=== PATIENT | female | born 1975 | race African-American/Black ===

== ENCOUNTER 2021-05-16 10:32 | Outpatient (REF) | payer MEDICAID, SELFPAY ==
--- NOTE | ~2021-05-16 | MM_ITS ---
EXAMINATION: MM SCREENING DIGITAL BREAST TOMOSYNTHESIS, BILATERAL CLINICAL INFORMATION: Screening. Asymptomatic. The lifetime risk of breast cancer based on the Tyrer-Cuzick Model is 8%. COMPARISON: Mammography: 09/30/2019, 04/14/2018, 12/25/2016 TECHNIQUE: Digital breast tomosynthesis is performed in both the craniocaudal and mediolateral oblique views along with computer-aided detection (CAD). Synthesized 2D images are generated from the tomosynthesis. FINDINGS: The breasts are almost entirely fatty (ACR BI-RADS breast composition Category a). There are no significant masses, abnormal calcifications, or other abnormalities. The axilla and skin contours are unremarkable. MM/MM tomosynthesis screening BI IMPRESSION: No mammographic evidence of malignancy. ASSESSMENT: BI-RADS 1: Negative RECOMMENDATION: Routine annual mammography screening. This patient's information was entered into a reminder system with a target due date for their next mammogram.
== END 2021-05-16 10:33 | disposition home or self-care (01) ==
LOC: HO.MAMMO 10:32
PROVIDERS: Visit Provider Internal Medicine
DX: Z12.31 Encounter for screening mammogram for malignant neoplasm of breast (principal)
CPT/HCPCS: 77063; 77067

== ENCOUNTER 2022-06-12 10:48 | Outpatient (REF) | payer MEDICAID, SELFPAY ==
--- NOTE | ~2022-06-12 | MM_ITS ---
EXAMINATION: MM SCREENING DIGITAL BREAST TOMOSYNTHESIS, BILATERAL CLINICAL INFORMATION: Screening. Asymptomatic. The lifetime risk of breast cancer based on the Tyrer-Cuzick Model is 6.6%. COMPARISON: Mammography: May 16, 2021 and studies dating back to December 17, 2016 TECHNIQUE: Digital breast tomosynthesis is performed in both the craniocaudal and mediolateral oblique views along with computer-aided detection (CAD). Synthesized 2D images are generated from the tomosynthesis. FINDINGS: The breasts are almost entirely fatty (ACR BI-RADS breast composition Category a). There are no significant masses, abnormal calcifications, or other abnormalities. MM/MM tomosynthesis screening BI IMPRESSION: There are no significant changes from prior study. ASSESSMENT: BI-RADS 1: Negative RECOMMENDATION: Routine annual mammography screening. This patient's information was entered into a reminder system with a target due date for their next mammogram.
== END 2022-06-12 10:49 | disposition home or self-care (01) ==
LOC: HO.MAMMO 10:48
PROVIDERS: Visit Provider Internal Medicine
DX: Z12.31 Encounter for screening mammogram for malignant neoplasm of breast (principal)
CPT/HCPCS: 77063; 77067

== ENCOUNTER 2023-06-17 12:35 | Outpatient (REF) | payer MEDICAID, SELFPAY ==
--- NOTE | ~2023-06-17 | MM_ITS ---
EXAMINATION: MM SCREENING DIGITAL BREAST TOMOSYNTHESIS, BILATERAL CLINICAL INFORMATION: Screening. Asymptomatic. The lifetime risk of breast cancer based on the Tyrer-Cuzick Model is 2%. COMPARISON: Mammography: This study is compared with prior exams dating back to 2017. TECHNIQUE: Digital breast tomosynthesis is performed in both the craniocaudal and mediolateral oblique views along with computer-aided detection (CAD). Synthesized 2D images are generated from the tomosynthesis. FINDINGS: The breasts are almost entirely fatty (ACR BI-RADS breast composition Category a). There are no significant masses, abnormal calcifications, or other abnormalities. MM/MM tomosynthesis screening BI IMPRESSION: No mammographic evidence of malignancy. ASSESSMENT: BI-RADS BI-RADS 1 - Negative RECOMMENDATION: Routine annual mammography screening. 1 year F/U This examination should not preclude the clinical evaluation of a suspicious palpable abnormality. This patient's information was entered into a reminder system with a target due date for their next mammogram.
== END 2023-06-17 12:36 | disposition home or self-care (01) ==
LOC: HO.MAMMO 12:35
PROVIDERS: Visit Provider Internal Medicine
DX: Z12.31 Encounter for screening mammogram for malignant neoplasm of breast (principal)
CPT/HCPCS: 77063; 77067

== ENCOUNTER → 2023-06-17 13:15 | Outpatient (BNV) | payer MEDICAID, SELFPAY | PROVIDERS: Visit Provider Radiology Diagnostic Radiology | DX: Z12.31 Encounter for screening mammogram for malignant neoplasm of breast (principal) | CPT/HCPCS: 77063; 77067 ==

== ENCOUNTER 2025-01-18 09:10 | Outpatient (REF) | payer MEDICAID, SELFPAY ==
--- OUTSIDE RECORDS SUMMARY | 2025-01-18 09:48 | XMS_ITS | Encounter Summary ---
Author Organization [employer] Address [address] [place] [address] Care Team Providers Care Correctional Therapy Director Name Role Phone Maday Espinal MD Primary Care Provider + Encounter Details Date Type Department Care Team (Latest Contact Info) Description 01/01/2025 Travel Social History Tobacco Use Types Packs/Day Years Used Date Smoking Tobacco: Never Smokeless Tobacco: Never Alcohol Use Standard Drinks/Week Comments Never 0 (1 standard drink = 0.6 oz pur e alcohol) Housing Stability Answer Date Recorded What is your housing situation today? I have bryce schmidt 07/31/[address] you li ve. Do you have problems with any of the following? None of the above 07/31/2024 Food Insecurity Answer Date Recorded Within the past 12 months, y ou worried that your food would run out before you got money to buy more: Sometimes True 2023 Within the past 12 months,th e food you bought just didn't last and you didn't have enough money to get more: Never True 07/31/2024 Transportation Answer Date Recorded In the past 12 months, has l ack of transportation kept you from medical appts, meetings, work or from getting things needed for daily living? No 05/14/2024 Utilities Answer Date Recorded In the past 12 months, has t he electric, gas, oil or water company threatened to shut off services in your home? No 09/10/2023 Depression Answer Date Recorded Patient Health Questionnaire-2 Score 0 08/13/2023 Internet Access Answer Date Recorded Internet Access Q1 Yes 07/31/2024 Internet Access Q2 I do not want or need it 04/2024 Comments Unknown Sex and Gender Information Value Date Recorded Sex Assigned at Female 09/24/2022 10:15 AM EDT Legal Sex Female 10:15 AM EDT Gender Identity Female 09/24/2022 10:15 AM EDT Sexual Orientation Straight 09/24/2022 10 :15 AM EDT documented as of this encounter Plan of Treatment Upcoming Encounters Date Type Department Care Team (Late st Contact Info) Description 01/27/2025 11:00 AM EST Office Visit [facility] OPTOMETRY [address] [place] [address] Risa Wasserman, OD [address] [place] [address] 02/05/2025 12:00 PM EDT Office Visit [facility] MEDICINE [address] [place] [address] Maday Espinal MD [address] [place] [address] documented as of this encounter Visit Diagnoses Not on filedocumented in this encounter Care Teams Correctional Therapy Director Relationship Specialty Start Date End Date Maday Espinal MD [address] [place] [address] PCP - General Family Medicine 07/11/17 Kenji Morgan Toilet AttendantGlass Blower Helper 12/30/23 documented as of this encounter
--- OUTSIDE RECORDS SUMMARY | 2025-01-18 09:48 | XMS_ITS | Encounter Summary ---
Author Organization [email or web address] Address [address] [facility] 7t [place] [address] Care Team Providers Care Executive Coach Name Role Phone Maday Espinal MD Primary Care Provider + Reason for Visit * Reason Onset Date Comments Appointment Request 09/08/2024 Encounter Details Date Type Department Care Team ([facility] Contact Info) Description 09/08/2024 Telephone [facility] MEDICINE [address] [place] [address] Maday Espinal MD [address] [place], [place] [phone] Appointment Request Social History Tobacco Use Types Packs/Day Years [...] AM EDT documented as of this encounter Miscellaneous Notes * Telephone Encounter - Jaime Richards - 09/08/2024 11:30 AM EDT Tc from patient calling to cancel appt for 09/15 adjusto writer operator did attempt to reschedule however there is no availability documented in this encounter Plan of Treatment Upcoming Encounters Date Type Department Care Team (Late st Contact Info) Description 01/27/2025 11:00 AM EST Office Visit [facility] OPTOMETRY [address] [place] [address] Lux, Risa, OD [address] [place] [address] 02/05/2025 12:00 PM EDT Office Visit [facility] MEDICINE [address] [place] [address] Maday Espinal MD [address] [place] [address] documented as of this encounter Visit Diagnoses Not on filedocumented in this encounter Care Teams Executive Coach Relationship Specialty Start Date End Date Maday Espinal MD [address] [place] [address] PCP - General Family Medicine 07/11/17 Kenji Morgan Labour Market EconomistStructural Steel Trades Worker 12/30/23 documented as of this encounter
--- OUTSIDE RECORDS SUMMARY | 2025-01-18 09:48 | XMS_ITS | Encounter Summary ---
Author Organization [employer] Address [address] [facility] [address] [place] [address] Care Team Providers Care Hinging Machine Operator Name Role Phone Maday Espinal MD Primary Care Provider + Reason for Visit * Reason Comments Follow-up Encounter Details Date Type Department Care Team ([facility] st Contact Info) Description 01/08/2025 9:45 AM EST Office Visit [facility] MEDICINE [address] [place] [address] Maday Espinal MD [address] [place], [place] [phone] Primary hypertension (Primary Dx); IFG (impaired fasting glucose); Vitamin D deficiency; Hypertriglyceridemia; Non-seasonal allergic rhinitis due to other allergic trigger Social History Tobacco Use Types Packs/Day Years Used Date Smoking Tobacco: Never Smokeless Tobacco: Never Tobacco Cessation:Counseling Given: Not Answered Alcohol Use Standard Drinks/Week Comments Never 0 [...] Date Recorded Patient Health Questionnaire-2 Score 0 01/08/2025 Internet Access Answer Date Recorded Internet Access [...] AM EDT documented as of this encounter Last Filed Vital Signs Vital Sign Reading Time Taken Comments Blood Pressure 130/80 01/08/2025 10:05 AM EST Pulse 80 01/08/2025 9:32 AM EST Temperature 35.6 ??C (96 ??F) 01/08/2025 9:32 AM EST Respiratory Rate - - Oxygen Saturation 100% 01/08/2025 9:32 AM EST Inhaled Oxygen Concentration - - Weight 90.8 kg (200 lb 4 oz) 01/08/2025 9:32 AM EST Height 154.6 cm (5' 0.88 ) 01/08/2025 9:32 AM ES T Body Mass Index 37.99 01/08/2025 9:32 AM EST documented in this encounter Progress Notes * Maday Espinal MD - 01/08/2025 9:45 AM EST SUBJECTIVE: Valentina Case is a 49 y.o. year old female who presents for Adlt sick visit visit . Denies recent illness, injury, or hospitalization. Patient here for follow-up., She is on the tail of a URI, has residual nasal congestion, no fever. She tells me that she has been taking losartan daily, [facility] but tells me blood pressure has been controlled. She does not have exertional chest pain and does have occasional headache. She is seeing a counselor and a prescriber Patric miller every 3 months, is doing well, takes BuSpar and duloxetine. She missed her appointment for mammogram. Acute Concerns: Social History Social History Narrative Not on file Patient Active Problem List Diagnosis Varicose veins of lower extremity Primary insomnia IFG (impaired fasting glucose) Hypertensive disorder Hypertriglyceridemia Hyperlipidemia Gastroesophageal reflux disease without esophagitis Folliculitis Bilateral chronic knee pain Amenorrhea Acute frontal sinusitis Foot pain Vitamin D deficiency Stress incontinence of urine Housing instability due to imminent risk of homelessness Allergic rhinitis due to allergen Class 3 severe obesity due to excess calories with serious comorbidity and body mass index (BMI) of40.0 to 44.9 in adult ([facility]) Chronic gastroesophageal reflux disease Recurrent major depressive disorder, in partial remission ([facility]) Callus No family history on file. Review of Systems Constitutional: Negative for chills, fatigue and fever. HENT: Positive for congestion. Negative for ear pain, nosebleeds, rhinorrhea, sinus pressure, sore throat and trouble swallowing. Eyes: Negative for pain and discharge. Respiratory: Negative for cough, chest tightness and shortness of breath. Cardiovascular: Negative for chest pain, palpitations and leg swelling. Gastrointestinal: Negative for abdominal pain, blood in stool, constipation, diarrhea and nausea. Endocrine: Negative for polydipsia and polyuria. Genitourinary: Negative for dysuria, frequency, genital sores, pelvic pain and vaginal discharge. Musculoskeletal: Negative for back pain and neck pain. Skin: Negative for rash. Allergic/Immunologic: Negative for environmental allergies. Neurological: Negative for dizziness, seizures, weakness, light-headedness and headaches. Hematological: Negative for adenopathy. Psychiatric/Behavioral: Negative for agitation, behavioral problems, self-injury and suicidal ideas. OBJECTIVE: Vitals: 01/08/25 0932 01/08/25 1005 BP: (!) 154/83 130/80 BP Location: Left arm Left arm Patient Position: Sitting Sitting BP Cuff Size: Large adult Adult long Pulse: 80 Temp: 96 ??F (35.6 ??C) TempSrc: Temporal SpO2: 100% Weight: 200 lb 4 oz (90.8 kg) Height: 5' 0.88 (1.546 m) Physical Exam HENT: Right Ear: Tympanic membrane and ear canal normal. Left Ear: Tympanic membrane and ear canal normal. Mouth/Throat: Mouth: Mucous membranes are moist. Pharynx: No oropharyngeal exudate or posterior oropharyngeal erythema. Eyes: Pupils: Pupils are equal, round, and reactive to light. Cardiovascular: Rate and Rhythm: Regular rhythm. Pulses: Normal pulses. Heart sounds: Normal heart sounds. No murmur heard. Pulmonary: Breath sounds: Normal breath sounds. Abdominal: General: Bowel sounds are normal. Palpations: Abdomen is soft. Tenderness: There is no abdominal tenderness. Musculoskeletal: General: Normal range of motion. Cervical back: Neck supple. Skin: General: Skin is warm. Neurological: General: No focal deficit present. Mental Status: She is alert and oriented to person, place, and time. Psychiatric: Mood and Affect: Mood normal. Behavior: Behavior normal. Problem List Items Addressed This Visit Hypertensive disorder - Primary Controlled. Compliant w/meds Continue losartan same dose Counseled re low salt diet/increase moderate physical activity. Check home BP BIW and prn CP/DE SOUZA/SEPULVEDA Non smoking patient. FU 1mo with labs IFG (impaired fasting glucose) Check A1c at next OV I have discussed with patient regarding increasing physicial activity and decrease calorie intake Check A1c q6-12m Vitamin D deficiency Of vitamin D. Advise regarding outdoor exercise or walking for at least 50 minutes daily. Check vitamin D levels prior to next appointment Hypertriglyceridemia Check labs prior to next appt Allergic rhinitis due to allergen Relevant Medications fluticasone (Flonase) 50 MCG/ACT nasal spray Follow Up: Current Outpatient Medications on File Prior to Visit Medication Sig Dispense Refill pantoprazole (ProtoNix) 40 MG EC tablet Take 1 tablet (40 mg) by mouth before breakfast. Do not crush, chew, or split. 90 tablet 0 albuterol 108 (90 Base) MCG/ACT inhaler Inhale 2 puffs every 6 (six) hours if needed for wheezing for up to 14 days. 18 g 0 Blood Pressure Monitor kit Use to check blood pressure as directed 1 kit 0 losartan (Cozaar) 100 MG tablet TAKE 1 TABLET BY MOUTH EVERY DAY 90 tablet 3 Salicylic Acid 40 % misc Apply to affected area dialy x 14d. Cover with bandaid 12 each 0 [DISCONTINUED] fluticasone (Flonase) 50 MCG/ACT nasal spray INSTILL 1-2 SPRAYS IN EACH NOSTRIL ONCEDAILY IN THE MORNING 48 g 0 No current facility-administered medications on file prior to visit. documented in this encounter Miscellaneous Notes * Assessment & Plan Note - Maday Espinal MD - 01/08/2025 10:06 AM EST Associated Problem(s): Hypertriglyceridemia Check labs prior to next appt * Assessment & Plan Note - Maday Espinal MD - 01/08/2025 10:04 AM EST Associated Problem(s): Vitamin D deficiency Of vitamin D. Advise regarding outdoor exercise or walking for at least 50 minutes daily. Check vitamin D levels prior to next appointment * Assessment & Plan Note - Maday Espinal MD - 01/08/2025 10:04 AM EST Associated Problem(s): IFG (impaired fasting glucose) Check A1c at next OV I have discussed with patient regarding increasing physicial activity and decrease calorie intake Check A1c q6-12m * Assessment & Plan Note - Maday Espinal MD - 01/08/2025 10:00 AM EST Associated Problem(s): Hypertensive disorder Controlled. Compliant w/meds Continue losartan same dose Counseled re low salt diet/increase moderate physical activity. Check home BP BIW and prn CP/DE SOUZA/SEPULVEDA Non smoking patient. FU 1mo with labs documented in this encounter Plan of Treatment Upcoming Encounters Date Type Department Care Team (Late st Contact Info) Description 01/27/2025 11:00 AM EST Office Visit [facility] OPTOMETRY [address] [place] [address] Risa Wasserman, OD [address] [place] [address] 02/05/2025 12:00 PM EDT Office Visit [facility] MEDICINE [address] [place] [address] Maday Espinal MD [address] [place], [place] [phone] documented as of this encounter Visit Diagnoses Diagnosis Primary hypertension- Primary Unspecified essential hypertension IFG (impaired fasting glucose) Vitamin D deficiency Hypertriglyceridemia Pure hyperglyceridemia Non-seasonal allergic rhinitis due to other allergic trigger documented in this encounter Care Teams Hinging Machine Operator Relationship Specialty Start Date End Date Maday Espinal MD [address] [place] [address] PCP - General Family Medicine 07/11/17 Kenji Morgan Exterior Work HelperZipper Sewing Machine Operator 12/30/23 documented as of this encounter
--- OUTSIDE RECORDS SUMMARY | 2025-01-18 09:48 | XMS_ITS | Encounter Summary ---
Author Organization [employer] Address [address] [place] [address] Care Team Providers Care Professor Of Archaeology Name Role Phone Maday Espinal MD Primary Care Provider + Encounter Details Date Type Department Care Team (Latest Contact Info) Description 01/08/2025 Travel Social History Tobacco Use Types Packs/Day [...] Description 01/27/2025 11:00 AM EST Office Visit [facility] OPTOMETRY [address] [place] [address] Risa Wasserman, OD [address] [place] [address] 02/05/2025 12:00 PM EDT Office Visit [facility] MEDICINE [address] [place] [address] Maday Espinal MD [address] [place] [address] documented as of this encounter Visit Diagnoses Not on filedocumented in this encounter Care Teams Professor Of Archaeology Relationship Specialty Start Date End Date Maday Espinal MD [address] [place] [address] PCP - General Family Medicine 07/11/17 Kenji Morgan Electrician ApprenticeLead Teacher 12/30/23 documented as of this encounter
--- OUTSIDE RECORDS SUMMARY | 2025-01-18 09:48 | XMS_ITS | Encounter Summary ---
Author Organization [employer] Address [address] [facility] [address] [place] [address] Care Team Providers Care Threading Machine Operator Name Role Phone Maday Espinal MD Primary Care Provider + Reason for Visit * Reason Comments Med Refill Encounter Details Date Type Department Care Team ([facility] Contact Info) Description 08/01/2023 Refill [facility] MEDICINE [address] [place], [place] [phone] Maday Espinal MD [address] [place] [address] Social History Tobacco Use Types Packs/Day Years Used Date Smoking Tobacco: Never Smokeless Tobacco: Never Alcohol Use Standard Drinks/Week Comments Never 0 (1 standard drink = 0.6 oz pur e alcohol) Comments Unknown Sex and Gender Information Value Date Recorded Sex Assigned at Female 09/24/2022 10:15 AM EDT Legal Sex Female 10:15 AM EDT Gender Identity Female 09/24/2022 10:15 AM EDT Sexual Orientation Straight 09/24/2022 10 :15 AM EDT documented as of this encounter Plan of Treatment Upcoming Encounters Date Type Department Care Team (Late Contact Info) Description 01/27/2025 11:00 AM EST Office Visit [facility] OPTOMETRY [address] [place], [place] [phone] Risa Wasserman OD [address] [place] [address] 02/05/2025 12:00 PM EDT Office Visit [facility] MEDICINE [address] [place] [address] Maday Espinal MD [address] [place] [address] documented as of this encounter Visit Diagnoses Not on filedocumented in this encounter Care Teams Threading Machine Operator Relationship Specialty Start Date End Date Maday Espinal MD [address] [place], [place] [phone] PCP - General Family Medicine 07/11/17 Kenji Morgan Foundation MakerWheel Borer 12/30/23 documented as of this encounter
--- OUTSIDE RECORDS SUMMARY | 2025-01-18 09:48 | XMS_ITS | Encounter Summary ---
Author Organization [employer] Address [address] [place] [address] Care Team Providers Care Leather Craftsman Name Role Phone Maday Espinal MD Primary Care Provider + Reason for Visit * Reason Onset Date Comments chart prep 12/31/2024 Encounter Details Date Type Department Care Team ([facility] Contact Info) Description 12/31/2024 Telephone [facility] MEDICINE [address] [place], [place] [phone] Nusrat Shen MA chart prep Social History Tobacco Use Types Packs/Day Years [...] encounter Miscellaneous Notes * Telephone Encounter - Nusrat Shen MA - 12/31/2024 2:44 PM EST Chart Prep Labs: not done Images: done Vaccines due: yes Referrals: closed Screenings: colonoscopy , pap smear Overdue care gaps: Sbirt, PHQ-9 documented in this encounter Plan of Treatment Upcoming Encounters Date Type Department Care Team (Late st Contact Info) Description 01/27/2025 11:00 AM EST Office Visit [facility] OPTOMETRY [address] [place] [address] Lux, Risa, OD [address] [place] [address] 02/05/2025 12:00 PM EDT Office Visit [facility] MEDICINE [address] [place] [address] Maday Espinal MD [address] [place] [address] documented as of this encounter Visit Diagnoses Not on filedocumented in this encounter Care Teams Leather Craftsman Relationship Specialty Start Date End Date Maday Espinal MD [address] [place] [address] PCP - General Family Medicine 07/11/17 Kenji Morgan Swinging Cut Off Saw OperatorKnotter Hand 12/30/23 documented as of this encounter
--- OUTSIDE RECORDS SUMMARY | 2025-01-18 09:48 | XMS_ITS | Encounter Summary ---
Author Organization [employer] Address [address] [facility] [address] [place] [address] Care Team Providers Care Biology Professor Name Role Phone Maday Espinal MD Primary Care Provider + Reason for Visit * Reason Onset Date Comments Appointment Request 01/08/2023 Encounter Details Date Type Department Care Team ([facility] Contact Info) Description 01/08/2023 Telephone [facility] MEDICINE [address] [place], [place] [phone] Maday Espinal MD [address] [place], [place] [phone] Appointment Request Social History Tobacco Use Types Packs/Day Years Used Date Smoking Tobacco: Never Assessed Comments Unknown Sex and Gender Information Value Date Recorded Sex Assigned at Female 09/24/2022 10:15 AM EDT Legal Sex Female 10:15 AM EDT Gender Identity Female 09/24/2022 10:15 AM EDT Sexual Orientation Straight 09/24/2022 10 :15 AM EDT documented as of this encounter Miscellaneous Notes * Telephone Encounter - Anirudh Cordero - 01/08/2023 2:22 PM EST Tc from pt requesting an appt with provider, pt states that provider had seen her a while back and asked her to come in, in 2 months, and pt has still not had that appt with provider. Senior Cytotechnologist tried gathering more information about what was the appt for but pt was unclear and unsure. Please cont pt at [phone] documented in this encounter Plan of Treatment Upcoming Encounters Date Type Department Care Team ([facility] Contact Info) Description 01/27/2025 11:00 AM EST Office Visit [facility] OPTOMETRY [address] [place], [place] [phone] LuxRisa santamaria, OD [address] [place] [address] 02/05/2025 12:00 PM EDT Office Visit [facility] MEDICINE [address] [place] [address] Maday Espinal MD [address] [place] [address] documented as of this encounter Visit Diagnoses Not on filedocumented in this encounter Care Teams Biology Professor Relationship Specialty Start Date End Date Maday Espinal MD [address] [place], [place] [phone] PCP - General Family Medicine 07/11/17 Kenji Morgan Print BuyerTongue Lining Stitcher 12/30/23 documented as of this encounter
--- OUTSIDE RECORDS SUMMARY | 2025-01-18 09:48 | XMS_ITS | Clinical Summary ---
Author Organization [employer] Address [address] [facility] [address] [place] [address] Care Team Providers Care Tool Design Checker Name Role Phone Maday Espinal MD Primary Care Provider + Allergies No known active allergies Medications Blood Pressure Monitor kit Use to check blood pressure as directed 1 kit 023 Active losartan (Cozaar) 100 MG tablet TAKE 1 TABLET BY MOUTH EVERY DAY 90 tablet 3 024 Active Salicylic Acid 40 % misc Apply to affected area dialy x 14d. Cover with bandaid 12 each 024 Active pantoprazole (ProtoNix) 40 MG EC tabletIndications:C hronic gastroesophageal reflux disease Take 1 tablet (40 mg) by mouth before breakfast. Do not crush, chew, or split. 90 tablet 025 2024 Active albuterol 108 (90 Base) MCG/ACT inhalerIndications: Acute cough Inhale 2 puffs every 6 (six) hours if needed for wheezing for up to 14 days. 18 g 025 Active fluticasone (Flonase) 50 MCG/ACT nasal sprayIndications:No n-seasonal allergic rhinitis due to other allergic trigger INSTILL 1-2 SPRAYS IN EACH NOSTRIL ONCE DAILY IN THE MORNING 48 g 025 Active fluticasone (Flonase) 50 MCG/ACT nasal sprayIndications:No n-seasonal allergic rhinitis due to other allergic trigger INSTILL 1-2 SPRAYS IN EACH NOSTRIL ONCE DAILY IN THE MORNING 48 g 023 2024 Discontinued(R eorder (will not trigger notification to Pharmacy)) pantoprazole (ProtoNix) 40 MG EC tabletIndications:C hronic gastroesophageal reflux disease Take 1 tablet (40 mg) by mouth before breakfast. Do not crush, chew, or split. 90 tablet 024 2024 Discontinued(R eorder (will not trigger notification to Pharmacy)) albuterol 108 (90 Base) MCG/ACT inhalerIndications: Acute cough Inhale 2 puffs every 6 (six) hours if needed for wheezing for up to 14 days. 6.7 g 025 2024 Discontinued(R eorder (will not trigger notification to Pharmacy)) Active Problems Problem Noted Date Diagnosed Date Recurrent major depressive disorder, in partial remission 07/17/2024 Assessment & Plan (07/17/2024 2:48 PM EDT): Seems to be doing well on Lexapro + Duloxetine, She's able to cope with current situation with her son. Continue to fu with TV providers: Counselor and her prescriber Patric Rodriguez 07/17/2024 Assessment & Plan (07/17/2024 2:49 PM EDT): On both pinky toes. Use OTC Salicylic acid callus lotion, re consult prn. Class 3 severe obesity due t o excess calories with serious comorbidity and body mass index (BMI) of 40.0 to 44.9 in adult 01/24/2024 Assessment & Plan (07/17/2024 2:44 PM EDT): She never fu with aircraft instrument tester, referred last year. Discussed re weight reduction options including exercise, life style modifications, diet. Recommended to decrease soda and sugary beverage consumption, increase protein intake with meals (at least 1 portion of protein with each meal) to assist with satiety, increase dietary fiber Recommended at least 150 min/week of moderate intensity exercise. Assessment & Plan (01/24/2024 12:52 PM EST): Agreed to aircraft instrument tester Discussed re weight reduction options including exercise, life style modifications, diet, referral to machine shop specialist. Discussed re lower calorie intake, increase dietary fiber' Chronic gastroesophageal reflux disease 01/24/20 24 Housing instability due to imminent risk of home lessness 08/13/2023 Assessment & Plan (01/24/2024 12:51 PM EST): Resolved, pt recently moved in w/ her family Assessment & Plan (08/13/2023 10:45 AM EDT): Counseled to look for contracts paralegal at [facility] Teresa from [facility] came to talk with pt about auctions Will arrange transportation for now Allergic rhinitis due to allergen 08/13/2023 Assessment & Plan (08/13/2023 10:47 AM EDT): Continue Flonase PRN Vitamin D deficiency 05/20/2023 Assessment & Plan (01/08/2025 10:04 AM EST): Of vitamin D. Advise regarding outdoor exercise or walking for at least 50 minutes daily. Check vitamin D levels prior to next appointment Assessment & Plan (07/17/2024 2:36 PM EDT): Sp vit D supplementation last year, now off meds. Re check Vit D levels. Advised re outdoor activities for at least 15 min daily Assessment & Plan (05/20/2023 2:40 PM EDT): start vitamin d deficiency x3 months counseled regarding vitamin d rich meals + outdoor exercise for 15 minutes Stress incontinence of urine 05/20/2023 Assessment & Plan (08/13/2023 1:16 PM EDT): Doing well with Kegel exercises Counseled weight reduction Counseled to decrease sweet drink intake Assessment & Plan (05/20/2023 2:39 PM EDT): no evidence of UTI or glucosuria counseled regarding weight reduction I gave her information about Kegel's exercises and dietary modifications fu with me in 3 months and consider urology referral. Primary insomnia 04/19/2023 IFG (impaired fasting glucose) 04/19/2023 Assessment & Plan (01/08/2025 10:04 AM EST): Check A1c at next OV I have discussed with patient regarding increasing physicial activity and decrease calorie intake Check A1c q6-12m Assessment & Plan (07/17/2024 2:35 PM EDT): I have discussed with patient regarding increasing physicial activity and decrease calorie intake I'll check FBS with next set of labs. To check A1c at next visit. FU in 3m Assessment & Plan (05/20/2023 2:41 PM EDT): A1C last month was at goal. I have discussed with patient regarding increasing physicial activity and decrease calorie intake I'll check FBS with next set of labs. To check RBS at next visit FU with me in 6 months Assessment & Plan (04/23/2023 12:39 PM EDT): Order BMP I have discussed with patient regarding increasing physicial activity and decrease calorie intake I'll check FBS with next set of labs. To check RBS at next visit. FU with me next visit Will do A1C at next visit Hypertensive disorder 04/19/2023 Assessment & Plan (01/08/2025 10:00 AM EST): Controlled. Compliant w/meds Continue losartan same dose Counseled re low salt diet/increase moderate physical activity. Check home BP BIW and prn CP/DE SOUZA/SEPULVEDA Non smoking patient. FU 1mo with labs Assessment & Plan (09/24/2024 9:21 AM EDT): Apparently uncontrolled due to pt being out of medications. Will check with pharmacy and insurance the possibility to provide Losartan 100 mg until next refill. Counseled re low salt diet/increase moderate physical activity. Check home BP BIW and prn CP/DE SOUZA/SEPULVEDA Non smoking patient. Pt will get labs and follow up with me in 2 months. Assessment & Plan (07/17/2024 2:34 PM EDT): Uncontrolled, apparently has been out of losartan for 1mo (last picked up on 03/17 x 90d). I called pharmacy to have it ready for her to pick it up today. Fu with me in 2-3m Counseled re low salt diet/increase moderate physical activity. Check home BP BIW and prn CP/DE SOUZA/SEPULVEDA Non smoking patient. Assessment & Plan (01/24/2024 12:51 PM EST): Fairly controlled Continue same medications Counseled re low salt diet/increase moderate physical activity. Check home BP BIW and prn CP/DE SOUZA/SEPULVEDA Non smoking patient. Wt reduction, will refer to aircraft instrument tester Fu in 4 m Assessment & Plan (08/13/2023 1:15 PM EDT): Controlled Continue Cozaar 100 mg Pt will look for assistance with contracts paralegal to sort out potential homelessness situation that has her under increased stress Counseled re low salt diet/increase moderate physical activity. Check home BP BIW and prn CP/DE SOUZA/SEPULVEDA Non smoking patient. Assessment & Plan (05/20/2023 2:41 PM EDT): Stage 2. Pt reluctant to start more medications and understands that she needs to make more dietary modifications including low sodium meal and increase exercise continue losartan 100mg and fu with me in 3 months Assessment & Plan (04/23/2023 12:39 PM EDT): Stage 1 Counseled re low salt diet/increase moderate physical activity. Check home BP BIW and prn CP/DE SOUZA/SEPULVEDA Non smoking patient. Continue Losartan 100mg and check BP at home BIW FU with me next month, she already has an appointment. Hypertriglyceridemia 04/19/2023 Assessment & Plan (01/08/2025 10:06 AM EST): Check labs prior to next appt Gastroesophageal reflux disease without esophagi tis 04/19/2023 Bilateral chronic knee pain 04/19/2023 Assessment & Plan (07/17/2024 2:51 PM EDT): Sec to OA Advised re weight reduction, she takes tylenol prn pain Declined referral to orthopedics for steroid injection for now. She wants to defer PT for now. Her daughter will continue assisting her with some ADLs that involve lifting heavy objects (some housekeeping, cooking, grocery shopping). She's independent for personal care (bathing, grooming etc). Acute frontal sinusitis 08/20/2018 Varicose veins of lower extremity 04/10/2018 Assessment & Plan (09/24/2024 9:20 AM EDT): Needs to follow up with Vascular Surgery for possible vasectomy. Assessment & Plan (07/17/2024 2:33 PM EDT): Continue wearing compression stockings and fu with vascular surgery Hyperlipidemia 04/10/2018 Assessment & Plan (07/17/2024 2:44 PM EDT): She was on dietary modifications last year Order lipid profile and fu results at next visit. Assessment & Plan (05/20/2023 2:40 PM EDT): We discussed re rx options. She wants to be more strict with life style modifications. Recommended moderate amount of exercise and increased consumption of fruit, vegetables, fish and high fiber foods. We discussed about avoiding consumption of highly saturated fats or trans fats. FU lipids in 6m No need for medications at this time, follow up lipid profile April 2024 Assessment & Plan (04/23/2023 12:38 PM EDT): We discussed re rx options. She wants to be more strict with life style modifications. Recommended moderate amount of exercise and increased consumption of fruit, vegetables, fish and high fiber foods. We discussed about avoiding consumption of highly saturated fats or trans fats. Not taking medications at this time Check Lipids and FU with me at upcoming appointment next month. Foot pain 04/10/2018 Folliculitis 10/10/2017 Amenorrhea 08/29/2017 Encounters Date Type Department Care Team Description 01/08/2025 9:45 AM EST Office Visit [facility] [address] [place] [phone] Maday Espinal MD Primary hypertension (Primary Dx); IFG (impaired fasting glucose); Vitamin D deficiency; Hypertriglyceridemia; Non-seasonal allergic rhinitis due to other allergic trigger 01/08/2025 Travel 01/07/2025 Telephone [facility] [address] [place] [phone] Maday Espinal MD Chart prep 01/01/2025 1:15 PM EST Office Visit [address] [address] Rose Neri ANP Acute cough (Primary Dx); Chronic gastroesophageal reflux disease 01/01/2025 Travel 12/31/[address] [phone] Nusrat Shen MA chart prep 12/31/[address] [phone] Maday Espinal MD Nurse Triage 12/08/[address] [phone] Maday Espinal MD Change PCP 12/02/2024 Patient Outreach [address] [phone] Maday Espinal MD Care Coordination (CHW outreach for SDOH PT-1 and food needs-referral completed /) 12/02/[address] [address] Maday Espinal MD PT1 12/01/[address] [phone] Maday Espinal MD No Show 11/27/[address] [address] Christa Mclaughlin MA Chart prep 11/24/2024 Patient Outreach [address] [phone] Maday Espinal MD Pre-visit Planning (SDOH screening completed on 07/31/2024) from Last 3 Months Immunizations Name Administration Dates Next Due Influenza Injectable Quadriv alant Preservative Free IIV4 MDCK 08/25/2020 Influenza injectable quadriv alent IIV4 with preservative 08/27/2018,08/29/2017 Influenza injectable quadrivalent preservative f ree 10/01/2022,10/13/2021 Tdap 05/14/2017 Social History Tobacco Use Types Packs/Day Years [...] Orientation Straight 09/24/2022 10 :15 AM EDT Last Filed Vital Signs Vital Sign Reading Time Taken Comments Blood Pressure 130/80 01/08/2025 10:05 AM EST Pulse 80 01/08/2025 9:32 AM EST Temperature 35.6 ??C (96 ??F) 01/08/2025 9:32 AM EST Respiratory Rate 14 01/01/2025 12:55 PM EST Oxygen Saturation 100% 01/08/2025 9:32 AM EST Inhaled Oxygen Concentration - - Weight 90.8 kg (200 lb 4 oz) 01/08/2025 9:32 AM EST Height 154.6 cm (5' 0.88 ) 01/08/2025 9:32 AM ES T Body Mass Index 37.99 01/08/2025 9:32 AM EST Plan of Treatment Upcoming Encounters Date Type Department Care Team (Late st Contact Info) Description 01/27/2025 11:00 AM EST Office Visit [facility] [address] [place] [address] LuxRisa santamaria, OD [address] [place] [address] 02/05/2025 12:00 PM EDT Office Visit [facility] [address] [place] [address] Maday Espinal MD [address] [place] [address] Health Maintenance Due Date Last Done Comments CT Colonography 1974 Colonoscopy 1974 Colorectal Cancer Screening 1974 FIT DNA/Cologuard 1974 FIT 1974 FOBT 1974 HIV Screening 1974 Sigmoidoscopy 1974 Family Planning (PISQ) 1989 Hepatitis C Screening 1992 Hepatitis B Vaccines (1 of 3 - 19+ 3-dose series) 1993 Pneumococcal Vaccine: 50+ Years (1 of 1 - PCV) 2024 Zoster Vaccines (1 of 2) 2024 COVID-19 Vaccine (2023- season) 2024 07/19/2022, 07/29/2021, 07/01/2021 Influenza Vaccine (#1) 2024 , 10/13/2021, 08/25/2020, Additional history exists Cervical Cancer Screening 04/09/2025 HPV/Cotest 04/09/2025 08/27/2018, 03/20/2017 Pap Smear 04/09/2025 04/09/2022 Mammogram 06/17/2025 06/17/2023, 05/25, 05/16/2021, Additional history exists SDOH Screening 07/31/2025 07/31/2024 Alcohol/Substance Use Screening 01/01/2026 01/01/2025 Depression Screening 01/08/2026 01/08/2025, 01/08/20 Tobacco Screening 01/08/2026 01/08/2025 DTaP/Tdap/Td Vaccines (2 - Td or Tdap) 05/14/2027 05/14/2017 Lipid Panel 04/29/2028 04/29/2023, 03/25, 09/27/2021 RSV Patients and Patients Aged 60 years or older (1 - 1-dose 75+ series) 2049 HIB Vaccines Aged Out No longer eligi ble based on patient's age to complete this topic HPV Vaccines Aged Out No longer eligi ble based on patient's age to complete this topic Hepatitis A Vaccines Aged Out No long er eligible based on patient's age to complete this topic IPV Vaccines Aged Out No longer eligi ble based on patient's age to complete this topic Meningococcal Vaccine Aged Out No levar shen eligible based on patient's age to complete this topic RSV under 20 months Aged Out No longe r eligible based on patient's age to complete this topic Rotavirus Vaccines Aged Out No longer eligible based on patient's age to complete this topic Procedures Procedure Name Priority Date/Time Associated Diagnosis Comments POCT INFLUENZA A (ID NOW RAPID MOLECULAR) Routine 01/01/2025 1:10 PM EST Acute cough POCT INFLUENZA B (ID NOW RAPID MOLECULAR) Routine 01/01/2025 1:09 PM EST Acute cough POCT RAPID COVID ANTIGEN Routine 01/01/2025 1:08 PM EST Acute cough BI MAMMOGRAM SCREENING TOMOSYNTHESIS BILATERAL Routine 06/17/2023 1:20 PM EDT LIPID PANEL WITH REFLEX TO DIRECT LDL Routine 04/29/2023 9:42 AM EDT Mixed hyperlipidemia THINPREP IMAGING SYSTEM PAP Routine 04/09/2022 9:02 AM EDT ZZZ HISTORICAL HPV MRNA E6/E7 Routine 08/27/2018 9:58 AM EDT from Last 3 Months or Most Recently Relevant to Health Maintenance Results * POCT Rapid Influenza A GA ID NOW (01/01/2025 1:10 PM EST) Influenza A Negative Negative, Indeterminate [facility] QC Media Lot # [id number] [facility] Lot# Expiration Date [facility] Swab 01/01/2025 1:10 PM EST Rose Neri ANP POINT OF CARE TEST ENTER/EDIT OR DERABLES Final Result Performing Organization Address [facility]/ZIP Co de Phone Number [facility] [address] [place] [phone] * POCT Rapid Influenza B GA ID NOW (01/01/2025 1:09 PM EST) Influenza B Negative Negative, Indeterminate [facility] QC Media Lot # [id number] [facility] Lot# Expiration Date [facility] Swab 01/01/2025 1:09 PM EST Rose Neri ANP POINT OF CARE TEST ENTER/EDIT OR DERABLES Final Result Performing Organization Address City/[facility]/ZIP Co de Phone Number [facility] [address] [place] [phone] * POCT Rapid Covid-19 BinaxNOW (01/01/2025 1:08 PM EST) Rapid COVID Ag Negative QC Media Lot # [id number] Lot# Expiration Date Swab 01/01/2025 1:08 PM EST Rose Neri ANP POINT OF CARE TEST ENTER/EDIT OR DERABLES Final Result * BI Mammogram Screening Tomosynthesis Bilateral (06/17/2023 1:20 PM EDT) Anatomical Region Laterality Modality Breast Bilateral Mammography 06/17/2023 1:20 PM EDT Narrative 07/07/2023 10:36 PM EDT ? [facility] ? [address] ?[place] [address] ? Mammography Report ? Signed ? Patient: Valentina Case ?MR#: [id number] ? : 1975 ?Acct:[id number] ? Age/Sex: 47 / F ?ADM Date: 06/17/23 ? Loc: HO.MAMMO ? Attending Dr: Maday Espinal MD ? Ordering Physician: Maday Espinal MD ?Results: ? Date of Service: 06/17/23 ?Follow Up: ? Procedure(s): MM tomosynthesis screening BI ?? Accession Number(s): [id number] ? cc: Maday Espinal MD ? EXAMINATION: ?? MM SCREENING DIGITAL BREAST TOMOSYNTHESIS, BILATERAL ? CLINICAL INFORMATION: ? Screening. Asymptomatic. ? The lifetime risk of breast cancer based on the Tyrer-Cuzick Model is ?? 2%. ? COMPARISON: ?? Mammography: This study is compared with prior exams dating back to ?? 2017. ? TECHNIQUE: ?? Digital breast tomosynthesis is performed in both the craniocaudal and ?? mediolateral oblique views along with computer-aided detection (CAD). ?? Synthesized 2D images are generated from the tomosynthesis. ? FINDINGS: ?? The breasts are almost entirely fatty (ACR BI-RADS breast composition ?? Category a). ? There are no significant masses, abnormal calcifications, or other ?? abnormalities. ? MM/MM tomosynthesis screening BI ?? IMPRESSION: ?? No mammographic evidence of malignancy. ? ASSESSMENT: ? BI-RADS BI-RADS 1 - Negative ? RECOMMENDATION: ?? Routine annual mammography screening. ? 1 year F/U ? This examination should not preclude the clinical evaluation of a ?? suspicious palpable abnormality. ? This patient's information was entered into a reminder system with a ?? target due date for their next mammogram. ? Dictated By: ?Jovana Aguilar MD ? Signed By: ?<Electronically signed by Jovana Aguilar MD in OV> ? 07/07/234 ? DD/ 1320 ? TD/TT: ? Asw Specialist: ? Procedure Note Param, Image - 07/07/2023 [facility] [address] [place] [address] Mammography Report Signed Patient: Valentina CaseMR#: [id number] : 1975Acct:[id number] Age/Sex: 47 / FADM Date: 06/17/23 Loc: HO.MAMMO Attending Dr: Maday Espinal MD Ordering Physician: Maday Espinal MDResults: Date of Service: 06/17/23Follow Up: Procedure(s): MM tomosynthesis screening BI Accession Number(s): [id number] cc: Maday Espinal MD EXAMINATION: MM SCREENING DIGITAL BREAST TOMOSYNTHESIS, BILATERAL CLINICAL INFORMATION: Screening. Asymptomatic. The lifetime risk of breast cancer based on the Tyrer-Cuzick Model is 2%. COMPARISON: Mammography: This study is compared with prior exams dating back to 2017. TECHNIQUE: Digital breast tomosynthesis is performed in both the craniocaudal and mediolateral oblique views along with computer-aided detection (CAD). Synthesized 2D images are generated from the tomosynthesis. FINDINGS: The breasts are almost entirely fatty (ACR BI-RADS breast composition Category a). There are no significant masses, abnormal calcifications, or other abnormalities. MM/MM tomosynthesis screening BI IMPRESSION: No mammographic evidence of malignancy. ASSESSMENT: BI-RADS BI-RADS 1 - Negative RECOMMENDATION: Routine annual mammography screening. 1 year F/U This examination should not preclude the clinical evaluation of a suspicious palpable abnormality. This patient's information was entered into a reminder system with a target due date for their next mammogram. Dictated By: Jovana Aguilar MD Signed By: <Electronically signed by Jovana Aguilar MD in OV> 07/07/23 2234 DD/ 1320 TD/TT: Asw Specialist: Maday Espinal MD IMG BI PROCEDURES Edited Result - Final * (ABNORMAL) Lipid Panel with Reflex to Direct LDL (04/29/2023 9:42 AM EDT) Cholesterol, Total 189 <200 mg/dL [facility] [place] [facility] HDL Cholesterol 56 > OR = 50 mg/dL [facility] Triglycerides 120 <150 mg/dL [facility] [place] [facility] LDL Cholesterol 110(H) mg/dL (calc) [facility] [place] [facility] Comment: Reference range: <100 Desirable range <100 mg/dL for primary prevention; ?? <70 mg/dL for patients with CHD or diabetic patients with > or = 2 CHD risk factors. LDL-C is now calculated using the Celine calculation, which is a validated novel method providing better accuracy than the Friedewald equation in the estimation of LDL-C. Giuliano SS et al. AUSTEN. 2013;310(19): 2950-2207 (http://education.Adea/faq/YVP120) Chol/HDLC Ratio 3.4 <5.0 (calc) [facility] [place] [facility] Non-HDL Cholesterol 133(H) <130 mg/dL (calc) [facility] [place] [email or web address] Comment: For patients with diabetes plus 1 major ASCVD risk factor, treating to a non-HDL-C goal of <100 mg/dL (LDL-C of <70 mg/dL) is considered a therapeutic option. 04/29/2023 9:42 AM EDT 04/29/2023 9:42 AM EDT Narrative [facility] - 04/29/2023 7:41 PM EDT FASTING:YES FASTING: YES Maday Espinal MD LAB BLOOD ORDERABLES Fin al Result [address], [place] [address] [facility] [place] [facility] [address] [place] [phone] * THINPREP TIS PAP (04/09/2022 9:02 AM EDT) Clinical Information: None given [facility] COMMENT SEE COMMENT [facility] Comment: EXPLANATORY NOTE: ? The Pap is a screening test for cervical cancer. It is ?? not a diagnostic test and is subject to false negative ?? and false positive results. It is most reliable when a ?? satisfactory sample, regularly obtained, is submitted ?? with relevant clinical findings and history, and when ?? the Pap result is evaluated along with historic and ?? current clinical information. ?? COMMENT: This Pap test has been evaluated with computer assisted technology. [facility] [place] Proof Technician Helper : SEE COMMENT [facility] Comment: MSM, CT(ASCP) CT screening location: [address] ??[address] Infection Shift in vaginal clifford suggestive of bacterial vaginosis. [facility] Interpretation/R esult: Negative for intraepithelial lesion or malignancy. [facility] LMP: NONE GIVEN [facility] Prev. BX: NONE GIVEN [facility] Prev. PAP: NONE GIVEN [facility] SOURCE: None given [facility] Statement Of Adequacy: SEE COMMENT [facility] Comment: Satisfactory for evaluation. Endocervical/transformation zone component absent. Age and/or menstrual status not provided 04/09/2022 9:02 AM EDT us Maday Espinal MD LAB PATHOLOGY ORDERABLES Final Result Performing Organization Address [facility]/ZIP Co de Phone Number [facility] [address] * HPV mRNA E6/E7 (08/27/2018 9:58 AM EDT) HPV mRNA E6/E7 Not Detected NOT DETECTED [facility] Comment: This test was performed using the APTIMA(R) HPV Assay ([employer] This assay detects E6/E7 viral messenger RNA (mRNA) from 14 high-risk HPV types (16,18,31,33,35,39,45,51, 52,56,58,59,66,68). For additional information please refer to: http://WatchDox.GroupTie/faq/NBB879n5 (This link is being provided for informational/ educational purposes only.) The analytical performance characteristics of this assay have been determined by [employer] [place], [place]. The modifications have not been cleared or approved by the FDA. This assay has been validated pursuant to the CLIA regulations and is used for clinical purposes. Test Performed by [facility], [facility], [address] [place] [address] Esdras Orr M.D., Ph.D., Director of Laboratories , CLIA [id number] Please note: ??Effective 08/06/2016, HPV testing will be performed using [employer]'s APTIMA test which targets mRNA. Detecting mRNA instead of DNA, as in older methods, offers significant improvements in specificity. 08/27/2018 9:58 AM EDT us Amanda Yousif CNM HISTORICAL/NON ORDERABLE LABS Final Result Performing Organization Address [facility] [[email or web address]] Co de Phone Number [facility] [address] from Last 3 Months or Most Recently Relevant to Health Maintenance Insurance C3 Care Teams Tool Design Checker Relationship Specialty Start Date End Date Maday Espinal MD [address] [place] [phone] PCP - General Family Medicine 07/11/17 Kenji Morgan Lumber Stacker OperatorMine Foreman 12/30/23
--- OUTSIDE RECORDS SUMMARY | 2025-01-18 09:48 | XMS_ITS | Encounter Summary ---
Author Organization [employer] Address 75 [facility] 7t [place] [address] Care Team Providers Care Teachers Aide Name Role Phone Maday Espinal MD Primary Care Provider + Reason for Visit * Reason Onset Date Comments PT1 12/02/2024 Encounter Details Date Type Department Care Team ([facility] Contact Info) Description 12/02/2024 Telephone [facility] MEDICINE [address] [place] [address] Maday Espinal MD [address] [place], [place] [phone] PT1 Social History Tobacco Use Types Packs/Day Years [...] encounter Miscellaneous Notes * Telephone Encounter - Theresa Caldwell - 12/02/2024 12:11 PM EST Patient calling requesting PT1 Home Address verified: Y/N: Yes Provider name or facility name: [facility] [address] [facility] [address]. Escort needed: Y/N: Yes Do you have a wheelchair: Y/N: No If yes- Manual or electric: N/A Visits: (3 visits x monthly) documented in this encounter Plan of Treatment Upcoming Encounters Date Type Department Care Team (Late st Contact Info) Description 01/27/2025 11:00 AM EST Office Visit [facility] OPTOMETRY [address] [place] [address] Lux, Risa, OD 230 [place] [address] 02/05/2025 12:00 PM EDT Office Visit [facility] MEDICINE [address] [place] [address] Maday Espinal MD [address] [place] [address] documented as of this encounter Visit Diagnoses Not on filedocumented in this encounter Care Teams Teachers Aide Relationship Specialty Start Date End Date Maday Espinal MD [address] [place] [address] PCP - General Family Medicine 07/11/17 Kenji Morgan Filling Station AttendantBow Tacker 12/30/23 documented as of this encounter
--- OUTSIDE RECORDS SUMMARY | 2025-01-18 09:48 | XMS_ITS | Encounter Summary ---
Author Organization [employer] Address 75 [facility] 7t [place] [address] Care Team Providers Care Exercise Equipment Repair Technician Name Role Phone Maday Espinal MD Primary Care Provider + Reason for Visit * Reason Onset Date Comments Change PCP 12/08/2024 Encounter Details Date Type Department Care Team ([facility] Contact Info) Description 12/08/2024 Telephone [facility] MEDICINE [address] [place] [address] Maday Espinal MD [address] [place], [place] [phone] Change PCP Social History Tobacco Use Types Packs/Day Years [...] encounter Miscellaneous Notes * Telephone Encounter - Joel Benjamin - 12/08/2024 11:17 AM EST Tc from pt requesting to change pcp due to pcp denying to sign papers 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 This pt states that they have trouble walking and has daughter helping her with ADLs and also with cooking and cleaning. documented in this encounter Plan of Treatment Upcoming Encounters Date Type Department Care Team (Late st Contact Info) Description 01/27/2025 11:00 AM EST Office Visit [facility] OPTOMETRY [address] [place] [address] Lux, Risa, OD [address] [place] [address] 02/05/2025 12:00 PM EDT Office Visit [facility] MEDICINE [address] [place] [address] Maday Espinal MD [address] [place] [address] documented as of this encounter Visit Diagnoses Not on filedocumented in this encounter Care Teams Exercise Equipment Repair Technician Relationship Specialty Start Date End Date Maday Espinal MD [address] [place] [address] PCP - General Family Medicine 07/11/17 Kenji Morgan Mass Communications ProfessorAdvanced Manufacturing Vice President 12/30/23 documented as of this encounter
--- OUTSIDE RECORDS SUMMARY | 2025-01-18 09:48 | XMS_ITS | Encounter Summary ---
Author Organization [employer] Address 75 [facility] 7t [place] [address] Care Team Providers Care Lead Sustainability Specialist Name Role Phone Maday Espinal MD Primary Care Provider + Reason for Visit * Reason Comments Cough Encounter Details Date Type Department Care Team (Latest Contact Info) Description 01/01/2025 1:15 PM EST Office Visit [facility] MEDICINE [address] [place], [place] [phone] Rose Neri ANP [address] [place], [place] [phone] Acute cough (Primary Dx); Chronic gastroesophageal reflux disease Social History Tobacco Use Types Packs/Day Years [...] Sign Reading Time Taken Comments Blood Pressure 153/84 01/01/2025 12:55 PM EST Pulse 93 01/01/2025 12:55 PM EST Temperature 36.8 ??C (98.3 ??F) 01/01/2025 12:[address] Respiratory Rate 14 01/01/2025 12:55 PM EST Oxygen Saturation - - Inhaled Oxygen Concentration - - Weight - - Height - - Body Mass Index - - documented in this encounter Plan of Treatment Upcoming Encounters Date Type Department Care Team (Late st Contact Info) Description 01/27/2025 11:00 AM EST Office Visit [facility] OPTOMETRY [address] [place] [address] Risa Wasserman, OD [address] [place] [address] 02/05/2025 12:00 PM EDT Office Visit [facility] MEDICINE [address] [place] [address] Maday Espinal MD [address] [place] [address] documented as of this encounter Procedures Procedure Name Priority Date/Time Associated Diagnosis Comments POCT INFLUENZA A (ID NOW RAPID MOLECULAR) Routine 01/01/2025 1:10 PM EST Acute cough POCT INFLUENZA B (ID NOW RAPID MOLECULAR) Routine 01/01/2025 1:09 PM EST Acute cough POCT RAPID COVID ANTIGEN Routine 01/01/2025 1:08 PM EST Acute cough documented in this encounter Results * POCT Rapid Influenza A GA ID NOW (01/01/2025 1:10 PM EST) Influenza A Negative Negative, Indeterminate [facility] QC Media Lot # [id number] [facility] Lot# Expiration Date [facility] Swab 01/01/2025 1:10 PM EST Rose Neri ANP POINT OF CARE TEST ENTER/EDIT OR DERABLES Final Result Performing Organization Address [facility]/ZIP Co de Phone Number [facility] [address] [place] [phone] * POCT Rapid Influenza B GA ID NOW (01/01/2025 1:09 PM EST) Pathologist [facility] Influenza B Negative Negative, Indeterminate [facility] QC Media Lot # [id number] [facility] Lot# Expiration Date 142 [facility] Swab 01/01/2025 1:09 PM EST Rose Neri ANP POINT OF CARE TEST ENTER/EDIT OR DERABLES Final Result Performing Organization Address City/[facility]/ZIP Co de Phone Number [facility] [address] [place] [phone] * POCT Rapid Covid-19 BinaxNOW (01/01/2025 1:08 PM EST) Rapid COVID Ag Negative QC Media Lot # [id number] Lot# Expiration Date Swab 01/01/2025 1:08 PM EST formerly [facility] ANP POINT OF CARE TEST ENTER/EDIT OR DERABLES Final Result documented in this encounter Visit Diagnoses Diagnosis Acute cough- Primary Chronic gastroesophageal reflux disease documented in this encounter Care Teams Lead Sustainability Specialist Relationship Specialty Start Date End Date Maday Espinal MD [address] [place] [address] PCP - General Family Medicine 07/11/17 Kenji Morgan ApplierDish Room Worker 12/30/23 documented as of this encounter
--- OUTSIDE RECORDS SUMMARY | 2025-01-18 09:48 | XMS_ITS | Encounter Summary ---
Author Organization [employer] Address [address] [facility] 7t [place] [address] Care Team Providers Care Jump Roll Operator Name Role Phone Maday Espinal MD Primary Care Provider + Reason for Visit * Reason Onset Date Comments Chart prep 01/07/2025 Encounter Details Date Type Department Care Team ([facility] Contact Info) Description 01/07/2025 Telephone [facility] MEDICINE [address] [place] [address] Maday Espinal MD [address] [place], [place] [phone] Chart prep Social History Tobacco Use Types Packs/Day [...] encounter Miscellaneous Notes * Telephone Encounter - Christa Mclaughlin [place] - 01/07/2025 2:27 PM EST Chart Prep Labs: not done Images: done Vaccines due: yes Referrals: complete Screenings: colonoscopy Overdue care gaps: PHQ-9 documented in this encounter Plan of Treatment Upcoming Encounters Date Type Department Care Team (Late st Contact Info) Description 01/27/2025 11:00 AM EST Office Visit [facility] OPTOMETRY [address] [place] [address] Lux, Risa, OD 230 [place] [address] 02/05/2025 12:00 PM EDT Office Visit [facility] MEDICINE [address] [place] [address] Maday Espinal MD [address] [place] [address] documented as of this encounter Visit Diagnoses Not on filedocumented in this encounter Care Teams Jump Roll Operator Relationship Specialty Start Date End Date Maday Espinal MD [address] [place] [address] PCP - General Family Medicine 07/11/17 Kenji Morgan Plate PainterSpecial Education Curriculum Specialist 12/30/23 documented as of this encounter
--- OUTSIDE RECORDS SUMMARY | 2025-01-18 09:48 | XMS_ITS | Encounter Summary ---
Author Organization [employer] Address [address] [facility] 7t [place] [address] Care Team Providers Care Phone Counselor Name Role Phone Maday Espinal MD Primary Care Provider + Reason for Visit * Reason Onset Date Comments Nurse Triage 12/31/2024 Encounter Details Date Type Department Care Team ([facility] st Contact Info) Description 12/31/2024 Telephone [facility] MEDICINE [address] [place] [address] Maday Espinal MD [address] [place], [place] [phone] Nurse Triage Social History Tobacco Use Types Packs/Day Years [...] encounter Miscellaneous Notes * Telephone Encounter - Fiona Gagnon LPN - 12/31/2024 11:19 AM EST Triage call returned with BLS # [id number] Solo. Patient reports that she has several days of increased cough and congestion. Slight wheezing at times. Has no fever ,sore throat or ear pain. Is able to take fluids. Patient with productive cough with green phlegm. No shortness of breath. Has been taking OTC Robitussin with some relief of coughing.Patient unable to come to HC today.Disposition reviewed and patient in agreement with plan. ASK/Lyudmila SQL SERVER ARCHITECT tomorrow at 115pm. Reviewed with patient home care recommendations, reasons to call back andsymptoms that require immediate evaluation in UC or ER. Patient verbalized understanding and agrees. Protocol Used: Cough (Adult) Protocol-Based Disposition: Go to Office or Video Visit Now Override (Final) Disposition: See in Office or Video Visit Today or Tomorrow Override Reason: Caller refused suggested disposition Video visit not offered Positive Triage Question: * Wheezing is present * All higher-acuity triage questions were negative Care Advice Discussed: * Cough Medicines * Cough Syrup With Dextromethorphan * Prevent Dehydration * Reasons To Call Back - Difficulty breathing - Cough lasts more than 3 weeks - Fever lasts more than 3 days - You become worse * Telephone Encounter - Theresa Caldwell - 12/31/2024 10:48 AM EST Symptoms: Cough, Chest Congestion Outcome: Schedule an appointment to be seen within 24 hours Reason: Caller denied all higher acuity questions The caller accepted this outcome. [phone] ([email or web address]) documented in this encounter Plan of Treatment Upcoming Encounters Date Type Department Care Team (Late st Contact Info) Description 01/27/2025 11:00 AM EST Office Visit [facility] OPTOMETRY [address] [place], [place] [phone] Risa Wasserman, OD 230 [place] [address] 02/05/2025 12:00 PM EDT Office Visit [facility] MEDICINE [address] [place] [address] Maday Espinal MD [address] [place] [address] documented as of this encounter Visit Diagnoses Not on filedocumented in this encounter Care Teams Phone Counselor Relationship Specialty Start Date End Date Maday Espinal MD [address] [place], [place] [phone] PCP - General Family Medicine 07/11/17 Kenji Morgan School Admissions RepresentativeMagistrate Judge 12/30/23 documented as of this encounter
--- OUTSIDE RECORDS SUMMARY | 2025-01-18 09:48 | XMS_ITS | Encounter Summary ---
Author Organization [employer] Address 75 [facility] 7t [place] [address] Care Team Providers Care Bad Work Gatherer Name Role Phone Maday Espinal MD Primary Care Provider + Reason for Visit * Reason Onset Date Comments Med Refill 12/23/2023 Encounter Details Date Type Department Care Team ([facility] st Contact Info) Description 12/23/2023 Telephone [facility] MEDICINE [address] [place] [address] Maday Espinal MD [address] [place], [place] [phone] Med Refill Social History Tobacco Use Types Packs/Day Years Used Date Smoking Tobacco: Never Smokeless Tobacco: Never Alcohol Use Standard Drinks/Week Comments Never 0 (1 standard drink = 0.6 oz pur e alcohol) Housing Stability Answer Date Recorded What is your housing situation today? I have bryce schmidt 09/10/[address] you li ve. Do you have problems with any of the following? None of the above 09/10/2023 Food Insecurity Answer Date Recorded Within the past 12 months, y ou worried that your food would run out before you got money to buy more: Never True 09/10/2023 Within the past 12 months,th e food you bought just didn't last and you didn't have enough money to get more: Never True Transportation Answer Date Recorded In the past 12 months, has l ack of transportation kept you from medical appts, meetings, work or from getting things needed for daily living? Yes, it has kept me from medical appointments or getting medications.;Yes, it has kept me from non-medical meetings, work, or getting things that I need 09/04/2023 Utilities Answer Date Recorded In the past 12 months, has t he electric, gas, oil or water company threatened to shut off services in your home? No 09/10/2023 Depression Answer Date Recorded Patient Health Questionnaire-2 Score 0 08/13/2023 Comments Unknown Sex and Gender Information Value Date Recorded Sex Assigned at Female 09/24/2022 10:15 AM EDT Legal Sex Female 10:15 AM EDT Gender Identity Female 09/24/2022 10:15 AM EDT Sexual Orientation Straight 09/24/2022 10 :15 AM EDT documented as of this encounter Miscellaneous Notes * Telephone Encounter - Parvin Narvaez LPN - 12/23/2023 2:01 PM EST #[id number] sent to [facility] on 11/05/23. * Telephone Encounter - Anna Soria - 12/23/2023 2:00 PM EST TC from pt requesting medication refill. Medications needing refill : losartan (Cozaar) 100 MG tablet To be sent to: [facility] - [place], [place] - [address] [place] [address] documented in this encounter Plan of Treatment Upcoming Encounters Date Type Department Care Team (Late st Contact Info) Description 01/27/2025 11:00 AM EST Office Visit [facility] OPTOMETRY [address] [place] [address] Risa Wasserman OD [address] [place] [address] 02/05/2025 12:00 PM EDT Office Visit [facility] MEDICINE [address] [place] [address] Maday Espinal MD [address] [place] [address] documented as of this encounter Visit Diagnoses Not on filedocumented in this encounter Care Teams Bad Work Gatherer Relationship Specialty Start Date End Date Maday Espinal MD [address] [place] [address] PCP - General Family Medicine 07/11/17 Kenji Morgan Yard CallerCigar Tobacco Rehandler 12/30/23 documented as of this encounter
--- OUTSIDE RECORDS SUMMARY | 2025-01-18 09:48 | XMS_ITS | Encounter Summary ---
Author Organization [employer] Address 75 [facility] 7t [place] [address] Care Team Providers Care Seamer Panty Hose Name Role Phone Maday Espinal MD Primary Care Provider + Encounter Details Date Type Department Care Team (Late st Contact Info) Description 02/12/2023 Orders Only [facility] MEDICINE [address] [place] [address] Dolores Garrison, DOCKWORKER [address] [place] [address] Social History Tobacco Use Types Packs/Day Years [...] Description 01/27/2025 11:00 AM EST Office Visit [facility] OPTOMETRY [address] [place] [address] Risa Wasserman, OD [address] [place] [address] 02/05/2025 12:00 PM EDT Office Visit [facility] MEDICINE [address] [place] [address] Maday Espinal MD [address] [place] [address] documented as of this encounter Visit Diagnoses Not on filedocumented in this encounter Care Teams Seamer Panty Hose Relationship Specialty Start Date End Date Maday Espinal MD [address] [place] [address] PCP - General Family Medicine 07/11/17 Kenji Morgan Printing EngineerSenior Clinical Data Coordinator 12/30/23 documented as of this encounter
--- OUTSIDE RECORDS SUMMARY | 2025-01-18 09:48 | XMS_ITS | Encounter Summary ---
Author Organization [employer] Address 75 [facility] 7t [place] [address] Care Team Providers Care Chemistry Manager Name Role Phone Maday Espinal MD Primary Care Provider + Encounter Details Date Type Department Care Team (Late st Contact Info) Description 02/04/2023 Orders Only [facility] MED & PEDS [address] [place] [address] Parvin Narvaez LPN Social History Tobacco Use Types Packs/Day Years [...] Description 01/27/2025 11:00 AM EST Office Visit [facility] OPTOMETRY [address] [place] [address] Risa Wasserman, OD [address] [place] [address] 02/05/2025 12:00 PM EDT Office Visit [facility] MEDICINE [address] [place] [address] Madya Espinal MD [address] [place] [address] documented as of this encounter Visit Diagnoses Not on filedocumented in this encounter Care Teams Chemistry Manager Relationship Specialty Start Date End Date Maday Espinal MD [address] [place] [address] PCP - General Family Medicine 07/11/17 Kenji Morgan Sheep RancherFloor Winder 12/30/23 documented as of this encounter
[2025-01-18 11:51] LABS: Syphilis Screen Nonreactive (Nonreactive)
[2025-01-18 12:08] LABS: TSH reflex Free T4 1.37 uIU/mL (0.32-4.0)
[2025-01-18 12:09] LABS: HBS Num1 1.38 mIU/mL (0-7.99); HBc Num1 0.14 S/CO (0.00-0.79); HBsAGNum1 0.29 S/CO (0.00-0.99); HIV AB/AG Nonreactive (Nonreactive); HIV Num 1 0.05 S/CO (0.00-0.99); Hepatitis A Antibody IgM 0.18 Index (0-0.79); Hepatitis B Core Antibody Nonreactive (Nonreactive); Hepatitis B Surface Antigen Negative (Negative); ~HepC Num1 0.23 S/CO (0.00-0.79); ~Hepatitis A Antibody IgM Nonreactive (Nonreactive); ~Hepatitis B Surface Antibody NONREACTIVE (Nonreactive); ~Hepatitis C Antibody Nonreactive (Nonreactive)
[2025-01-18 12:27] LABS: Anion Gap 10 (12-20)
[2025-01-18 12:32] LABS: Alanine Aminotransferase 12 U/L (0-31); Albumin Level 3.7 g/dL (3.5-5.0); Alkaline Phosphatase 69 U/L (39-117); Aspartate Amino Transferase 18 U/L (5-31); Bilirubin Total 0.5 mg/dL (0.0-1.0); Blood Urea Nitrogen 15 mg/dL (9-16); Carbon Dioxide 28 mmol/L (22-29); Chloride 108 mmol/L (96-108); Cholesterol 200 mg/dL (<200); Estimated Glomerular Filt Rate > 60; Glucose Random 86 mg/dL (60-115); HDL Cholesterol 60 mg/dL (>40); LDL Cholesterol Calculated 121 mg/dL (<100); Potassium 4.3 mmol/L (3.3-5.1); Sodium 142 mmol/L (135-145); Total Protein 7.5 g/dL (6.5-8.0); Triglycerides 95 mg/dL (<150)
[2025-01-18 12:44] LABS: Reflex LDLD? No
== END 2025-01-18 09:11 | disposition home or self-care (01) ==
LOC: HO.HHCL 09:10
PROVIDERS: Visit Provider Internal Medicine
DX: F33.41 Major depressive disorder, recurrent, in partial remission (principal); E78.2 Mixed hyperlipidemia; E55.9 Vitamin D deficiency, unspecified; I10 Essential (primary) hypertension; R73.01 Impaired fasting glucose
CPT/HCPCS: 36415; 80053; 80061; 82306; 84443; 86704; 86706; 86709; 86780; 86803; 87340; 87389